=== PATIENT | female | born 1950 | race Caucasian/White ===

== ENCOUNTER 2016-09-26 21:26 | Emergency (ER) | payer MEDICARE, OTHER ==
--- NOTE | 2016-09-26 21:54 | ED Physician Documentation ---
History of Present Illness - Stated complaint Stated Complaint: RT SIDE/BACK PX - Chief complaint Chief Complaint: Abd Pain - History obtained from History obtained from: Patient, Family - History of Present Illness Timing: Today, How many hours ago (8) Pain level max: 10 Pain level now: 10 Improved by: nothing Worsened by: nothing - Additonal information Additional information: Patient presents to the emergency department with right flank pain today. Also states that it radiates around the right side of her abdomen to her groin. States has not had this pain before. Denies any recent injury. Has not taken anything for the pain today. States that she normally has high blood pressure. Review of Systems Constitutional: denies: Fever, Chills Nose: denies: Rhinorrhea / runny nose, Congestion Throat: denies: Sore throat Respiratory: denies: Cough GI: denies: Nausea, Vomiting, Diarrhea, Hematemesis, Bloody / black stool : denies: Dysuria Skin: denies: Rash Musculoskeletal: denies: Neck pain, Back pain Neurologic: denies: Numbness, Headache PD PAST MEDICAL HISTORY - Past Medical History Past Medical History: Yes Cardiovascular: Hypertension - Past Surgical History Past Surgical History: No - Present Medications Home Medications: Ambulatory Orders Medication Instructions Recorded Confirmed Hydrocodone/Acetaminophen 1 - 2 each PO Q6H PRN #14 tablet 09/26/16 [Hydrocodon-Acetaminophen 5-325] Sitagliptin Phos/Metformin HCl 09/26/16 [Janumet 50-1,000 mg Tablet] - Allergies Allergies/Adverse Reactions: Allergies Allergy/AdvReac Type Severity Reaction Status Date / Time Penicillins Allergy Rash Verified 09/26/16 21:35 - Living Situation Living Situation: reports: With family Living Arrangement: reports: At home - Social History Does the pt have substance abuse?: No - Family History Family history: reports: Non contributory PD ED PE NORMAL - Vitals Vital signs reviewed: Yes - General General: Alert and oriented X 3, No acute distress - HEENT HEENT: Moist mucous membranes - Neck Neck: Supple, no meningeal sign - Cardiac Cardiac: RRR, Strong equal pulses - Respiratory Respiratory: No respiratory distress, Clear bilaterally - Abdomen Abdomen: Soft, Non tender, Non distended - Back Back: No CVA TTP, No spinal TTP - Derm Derm: Warm and dry, No rash - Extremities Extremities: No deformity - Neuro Neuro: Alert and oriented X 3 - Psych Psych: Normal mood, Normal affect Results - Vitals Vitals: Vital Signs - 24 hr 09/26/16 09/26/16 09/26/16 21:31 23:08 23:28 Temperature 36.4 C L 36.3 C L Heart Rate 79 73 81 Respiratory 20 16 16 Rate Blood Pressure 193/95 H 115/94 H 136/91 H O2 Saturation 96 96 99 Oxygen O2 Source Room air - Labs Labs: Laboratory Tests 09/26/16 09/26/16 09/26/16 21:50 21:50 22:35 WBC 11.6 H RBC 4.41 Hgb 13.1 Hct 39.8 MCV 90.4 MCH 29.7 MCHC 32.8 RDW 12.7 Plt Count 361 MPV 7.6 L Neut # 7.4 H Lymph # 3.0 [place] # 0.8 Eos # 0.3 Baso # 0.1 Absolute Nucleated RBC 0.00 Nucleated RBCs 0.0 Sodium 132 L Potassium 4.1 Chloride 98 L Carbon Dioxide 26 Anion Gap 8.0 BUN 23 H Creatinine 0.7 Estimated GFR (MDRD) 83 L Glucose 142 H Calcium 9.6 Total Bilirubin 0.7 AST 24 ALT 24 Alkaline Phosphatase 59 Total Protein 7.7 Albumin 4.4 Globulin 3.3 Albumin/Globulin Ratio 1.3 Lipase 25 Urine Color YELLOW Urine Clarity CLEAR Urine pH 6.0 Ur Specific [place] 1.020 Urine Protein NEGATIVE Urine Glucose (UA) NEGATIVE Urine Ketones NEGATIVE Urine Occult Blood NEGATIVE Urine Nitrite NEGATIVE Urine Bilirubin NEGATIVE Urine Urobilinogen 0.2 (NORMAL) Ur Leukocyte Esterase NEGATIVE Ur Microscopic Review NOT INDICATED Urine Culture Comments NOT INDICATED - Rads (name of study) CT abd/.pelvis Radiology: Prelim report reviewed, EMP read contemporaneously, See rad report ( Right mid renal a few calculi versus atherosclerotic calcification measuring 3 mm. No hydronephrosis. No ureteral or bladder calculi. Normal appendix. Colonic diverticulosis without evidence for acute diverticulitis. No acute findings are seen in the abdomen and pelvis Infrarenal abdominal aortic aneurysm measuring 3.5 cm. ) PD MEDICAL DECISION MAKING - ED course Complexity details: reviewed results, re-evaluated patient, considered differential, d/w patient ED course: Patient presents to the emergency department with right flank pain of unclear etiology. Toradol did not significantly help her pain. She does have a small infrarenal aortic aneurysm, approximately 3.5 cm. We will have her follow-up with her doctor for further evaluation of this. No evidence of rupture here. Pain does not appear consistent with pain from her aneurysm. The pain is very lateral on the right flank. Pain did appear more consistent with a ureteral stone, but lack of hematuria and no CT findings of renal stone make this unlikely. Will place her on pain control and have her follow-up with her doctor. Patient will return if she worsens. She states that her blood pressure is normally 140-150 systolic. She states that it is normally higher when she goes to the doctor. Patient counseled regarding signs and symptoms for which I believe and urgent re-evaluation would be necessary. Patient with good understanding of and agreement to plan and is comfortable going home at this time This document was made in part using voice recognition software. While efforts are made to proofread this document, sound alike and grammatical errors may occur. Departure - Departure Disposition: 01 Home, Self Care Clinical Impression: Flank pain Abdominal pain Qualifiers: Abdominal location: right lower quadrant Qualified Code(s): R10.31 - Right lower quadrant pain Condition: Good Instructions: ED Abdominal Pain Unkn Cause Follow-Up: your,doctor in 3 days [Other] Prescriptions: Hydrocodone/Acetaminophen [Hydrocodon-Acetaminophen 5-325] 1 - 2 each PO Q6H PRN #14 tablet PRN Reason: pain Comments: The cause of your symptoms is unclear today. Return if you worsen. You do have a small aortic aneurysm, this needs to be followed up with your doctor. It is currently 3.5 cm. Your doctor will likely order an ultrasound of this to continue surveilling it. You also need to make sure that your blood pressure is well controlled. Your blood pressure was elevated today on check in to the emergency department. This does not mean that you have hypertension, it is a common phenomenon to check into the emergency department and have elevated blood pressure. I recommend that you see your primary care physician within the week to have it rechecked when you're feeling better. Do not drink alcohol or drive while on narcotic pain medicine. Note that many narcotic pain relievers also contain tylenol/acetaminophen. Please ensure that your total dose of acetaminophen from all sources does not exceed 3 grams (3000mg) per day. You may constipated on this medication, take a stool softener such as "Colace" twice a day while you are on it. Also recommend a [id number]-[id number] laxative such as senna or MiraLAX any day that you do not have a bowel movement. If you received narcotic pain medication in the emergency department, do not drive or operate machinery for the next 24 hours. Discharge Date/Time: 09/26/16 23:29
[2016-09-26 22:02] LABS: BASOPHILS # (AUTO) 0.1 10^3/uL (0.0-0.1); BASOPHILS % (AUTO) 0.6 %; EOSINOPHILS # (AUTO) 0.3 10^3/uL (0.0-0.7); EOSINOPHILS % (AUTO) 2.8 %; HCT - HEMATOCRIT 39.8 % (37.0-47.0); HGB - HEMOGLOBIN 13.1 g/dL (12.0-16.0); LYMPHOCYTES % (AUTO) 25.9 %; MEAN CORPUSCULAR HEMOGLOBIN 29.7 pg (27.0-31.0); MEAN CORPUSCULAR HGB CONC 32.8 g/dL (32.0-36.0); MEAN CORPUSCULAR VOLUME 90.4 fL (81.0-99.0); MEAN PLATELET VOLUME 7.6 fL (7.9-10.8); MONOCYTES # (AUTO) 0.8 10^3/uL (0.0-1.0); MONOCYTES % (AUTO) 7.3 %; NEUTROPHILS # (AUTO) 7.4 10^3/uL (1.5-6.6); NEUTROPHILS % (AUTO) 63.4 %; RED BLOOD COUNT 4.41 10^6/uL (4.20-5.40); RED CELL DISTRIBUTION WIDTH 12.7 % (12.0-15.0); UNCORRECTED WHITE BLOOD COUNT 11.6 x10^3/uL; WHITE BLOOD COUNT 11.6 x10^3/uL (4.8-10.8)
[2016-09-26] MEDS ORDERED: KETOROLAC 30 MG/ML VIAL ONE (22:09)
[2016-09-26 22:11] LABS: ALBUMIN/GLOBULIN RATIO 1.3 (1.0-2.2); BILIRUBIN,TOTAL 0.7 mg/dL (0.2-1.0); CALCIUM 9.6 mg/dL (8.5-10.3); CREATININE 0.7 mg/dL (0.4-1.0); POTASSIUM 4.1 mmol/L (3.5-5.0); TOTAL PROTEIN 7.7 g/dL (6.7-8.2)
[2016-09-26] MEDS: SODIUM CHLORIDE 0.9% 1,000 ML IV ONE ×2 (22:14→22:42)
[2016-09-26] MEDS: KETOROLAC 60 MG/2 ML VIAL IVP STA (22:14)
--- NOTE | 2016-09-26 22:29 | CT Preliminary Report ---
Exam: CT Abdomen/Pelvis W/O IMPRESSION: 1. Right mid renal a few calculi versus atherosclerotic calcification measuring 3 mm. No hydronephros is. No ureteral or bladder calculi. 2. Normal appendix. Colonic diverticulosis without evidence for acute diverticulitis. 3. No acute findings are seen in the abdomen and pelvis 4. Infrarenal abdominal aortic aneurysm measuring 3.5 cm. [facility] SITE ID: [id number]
--- NOTE | 2016-09-26 22:32 | CT Report ---
EXAM: CT ABDOMEN AND PELVIS (CT KUB) EXAM DATE: 09/26/2016 10:10 PM. CLINICAL HISTORY: Right flank pain COMPARISONS: None. TECHNIQUE: Routine axial helical CT imaging was performed through the abdomen and pelvis without IV c ontrast. Reconstructions: Coronal and sagittal. In accordance with CT protocol optimization, one or more of the following dose reduction techniques w ere utilized for this exam: automated exposure control, adjustment of mA and/or KV based on patient s ize, or use of iterative reconstructive technique. FINDINGS: Lung Bases: Mild left lower lobe bronchial wall thickening with borderline bronchiectasis. Mild bibas ilar linear atelectasis or scarring. Coronary artery calcification. Liver contour is mildly lobular. No focal liver lesions are seen. The gallbladder and bile ducts are unremarkable. Her graph the pancreas, spleen and adrenals appear u nremarkable. Infrarenal abdominal aorta measures 3.5 cm consistent with an aneurysm. Marked diffuse atheroscleroti c calcification. Mild bilateral perinephric stranding left greater than right, could be chronic for the patient. No hy dronephrosis. Right mid renal a few calculi versus atherosclerotic calcification measuring 3 mm. No h ydronephrosis. No ureteral or bladder calculi. Peritoneal Cavity: Normal appendix. Moderate sigmoid and descending colon diverticulosis. Mild scatte red colonic diverticula in the rest of the colon. No evidence for bowel obstruction. No free fluid or free air. Pelvic Organs: No bladder stones or wall thickening. Noncontrast images of the visualized pelvic orga ns are unremarkable. Other: Mild anterolisthesis of L4-L5 and L5-S1, suspect this is degenerative IMPRESSION: 1. Right mid renal a few calculi versus atherosclerotic calcification measuring 3 mm. No hydronephros is. No ureteral or bladder calculi. 2. Normal appendix. Colonic diverticulosis without evidence for acute diverticulitis. 3. No acute findings are seen in the abdomen and pelvis 4. Infrarenal abdominal aortic aneurysm measuring 3.5 cm. [facility] Referring Provider Line: [phone] SITE ID: [id number]
[2016-09-26 22:49] LABS: BILIRUBIN,URINE NEGATIVE (NEGATIVE)
[2016-09-26 22:52] LABS: UA CHARGE (STRIP ONLY) YES; UR CULTURE IF IND NOT INDICATED
[2016-09-26] MEDS ORDERED: HYDROcod/ACETAM 5/325 MG TABLET ONE (23:18)
[2016-09-26] MEDS: HYDROcod/ACETAM 5/325 MG TABLET PO STA (23:21)
[2016-09-26 23:29] VITALS: BP 136/91
== END 2016-09-26 23:29 | disposition home or self-care (01) ==
LOC: ED 21:26
DX: R10.31 Right lower quadrant pain (principal); R10.2 Pelvic and perineal pain; N20.0 Calculus of kidney; I71.4 Abdominal aortic aneurysm, without rupture; R03.0 Elevated blood-pressure reading, without diagnosis of hypertension
CPT/HCPCS: 36415; 74176; 80053; 81001; 81003; 83690; 85025; 87086; 96374; 99284